=== PATIENT | male | born 1950 | race Caucasian/White ===

== ENCOUNTER 2021-05-03 13:54 | Outpatient (CLI) | payer MEDICARE, SELFPAY ==
--- NOTE | 2021-05-03 14:12 | EKG12_ITS ---
Test Reason : PRE0OP Blood Pressure : / mmHG Vent. Rate : 092 BPM Atrial Rate : 092 BPM P-R Int : 166 ms QRS Dur : 090 ms QT Int : 344 ms P-R-T Axes : 061 009 079 degrees QTc Int : 425 ms Normal sinus rhythm Normal ECG Confirmed by MICHELLE DAVIDSON, JOSE ([id number]), design editor VIKRAM GREGG ([id number]) on 05/06/2021 10:53:05 AM Referred By: Javier Fitzgerald Confirmed By:JOSE MARTINEZ MD
[2021-05-03 14:30] LABS: Hematocrit 42.9 % (40-54); Hemoglobin 14.8 g/dL (13.0-16.5); Mean Corp Hgb Conc 34.5 g/dL (32-36); Mean Corpuscular Hgb 33.6 pg (27.0-32.0); Mean Corpuscular Volume 97.3 fL (80-94); Mean Platelet Vol. 9.4 fl (6.2-12.0); Platelet Count 298 K/mm3 (150-450); RBC Distribution Width CV 12.4 % (11.6-14.6); RBC Distribution Width SD 44.6 fl (35.1-43.9); Red Blood Count 4.41 M/mm3 (4.6-6.2); White Blood Count 10.3 K/mm3 (4.4-11.0)
[2021-05-03 14:56] LABS: Anion Gap 3 (5-15); BUN 17 mg/dL (7-18); BUN/Creat Ratio 16.7 RATIO (10-20); Calcium,Total 9.8 mg/dL (8.5-10.1); Chloride 107 mmol/L (98-107); Creatinine, Serum 1.02 mg/dL (0.70-1.30); EST Glomerular Filtration Rate 76 mL/min (>60); Est Glom Filt Rate - Afr Amer 92 mL/min (>60); Glucose 151 mg/dL (74-106); Potassium 4.2 mmol/L (3.5-5.1); Sodium Level 139 mmol/L (136-145)
== END 2021-05-03 23:59 | disposition home or self-care (01) ==
PROVIDERS: PCP Nurse Practitioner Primary Care; Referring Provider Urology; Visit Provider Urology
DX: Z01.810 Encounter for preprocedural cardiovascular examination (principal); Z01.812 Encounter for preprocedural laboratory examination; Z03.818 Encounter for observation for suspected exposure to other biological agents ruled out
CPT/HCPCS: 36415; 80048; 85027; 87635; 93005; C9803; U0003; U0005